=== PATIENT | male | born 1965 | race American Indian/Alaskan Native ===

== ENCOUNTER 2018-04-03 15:01 | Inpatient (IN) | payer SELFPAY ==
[2018-04-03] MEDS ORDERED: ASPIRIN PO ONE (15:20)
[2018-04-03 16:11] LABS: Basophils # (Auto) 0.1 K/mm3 (0.0-0.1); Basophils % (Auto) 0.9 % (0.0-1.8); Eosinophils # (Auto) 0.2 K/mm3 (0.0-0.4); Eosinophils % (Auto) 3.2 % (0.0-4.3); Hematocrit 44.8 % (35.5-45.6); Hemoglobin 14.5 gm/dl (11.8-15.2); Lymphocytes # (Auto) 1.6 K/mm3 (1.2-5.4); Lymphocytes % (Auto) 27.1 % (13.4-35.0); Mean Corpuscular HGB Conc 32 % (32-34); Mean Corpuscular Hemoglobin 28 pg (28-32); Mean Corpuscular Volume 85 fl (84-94); Monocytes # (Auto) 0.5 K/mm3 (0.0-0.8); Monocytes % (Auto) 8.6 % (0.0-7.3); Platelet Count 426 K/mm3 (140-440); Red Blood Count 5.25 M/mm3 (3.65-5.03); Red Cell Distribution Width 17.7 % (13.2-15.2)
--- NOTE | 2018-04-03 16:22 | Emergency Department Report ---
ED Shortness of Breath HPI - General Chief Complaint: High BP Stated Complaint: HIGH BP Time Seen by Provider: 04/03/18 16:08 Source: patient Mode of arrival: Ambulatory Limitations: No Limitations - History of Present Illness Initial Comments: 52-year-old male with history of hypertension presents to ED with complaint of feeling like blood pressure is elevated and also shortness of breath. Patient states her blood pressure was elevated due to feelings of dizziness and lightheadedness. Patient denies chest pain. Reports dyspnea on exertion. States feels like he has "water on his lungs." Patient states in the past he has had fluid on his lungs. Unsure if he's ever been diagnosed with congestive heart failure. Patient reports lower extremity edema. Denies leg pain. Denies headache. Patient states has been off medications for several years. Patient denies smoking, drinking, or drug use. PCP: none Complaint: shortness of breath -: Gradual (unable to state time frame) Severity: moderate Consistency: intermittent Improves With: rest Worsens With: exertion Context: occured during exertion Associated Symptoms: palpitations - Related Data Previous Rx's Medication Instructions Recorded Last Taken Type Furosemide [Lasix TAB] 40 mg PO QDAY #30 tablet 04/03/18 Unknown Rx Lisinopril [Prinivil] 10 mg PO DAILY #30 tablet 04/03/18 Unknown Rx Metoprolol [Lopressor TAB] 25 mg PO DAILY #30 tablet 04/03/18 Unknown Rx Potassium Chloride 10 meq PO QDAY #15 capsule.er 04/03/18 Unknown Rx Simvastatin [Zocor TAB] 10 mg PO QHS #30 tablet 04/03/18 Unknown Rx Allergies Allergy/AdvReac Type Severity Reaction Status Date / Time No Known Allergies Allergy Unverified 04/03/18 15:17 ED Review of Systems ROS: Stated complaint: HIGH BP Other details as noted in HPI Comment: All other systems reviewed and negative Constitutional: denies: chills, fever Respiratory: cough, shortness of breath, SOB with exertion Cardiovascular: palpitations, dyspnea on exertion. denies: chest pain Genitourinary: other (decreased urine output) Neurological: denies: headache ED Past Medical Hx - Past Medical History Hx Hypertension: Yes Additional medical history: gout - Social History Smoking Status: Former Smoker Substance Use Type: Alcohol - Medications Home Medications: Home Medications Medication Instructions Recorded Confirmed Last Taken Type Furosemide [Lasix TAB] 40 mg PO QDAY #30 tablet 04/03/18 Unknown Rx Lisinopril [Prinivil] 10 mg PO DAILY #30 tablet 04/03/18 Unknown Rx Metoprolol [Lopressor TAB] 25 mg PO DAILY #30 tablet 04/03/18 Unknown Rx Potassium Chloride 10 meq PO QDAY #15 capsule.er 04/03/18 Unknown Rx Simvastatin [Zocor TAB] 10 mg PO QHS #30 tablet 04/03/18 Unknown Rx ED Physical Exam - General Limitations: No Limitations General appearance: alert, in no apparent distress - Head Head exam: Present: atraumatic, normocephalic - Eye Eye exam: Present: normal appearance, EOMI - ENT ENT exam: Present: mucous membranes moist - Neck Neck exam: Present: normal inspection - Respiratory Respiratory exam: Present: other (decreased breath sounds at bilateral bases) - Cardiovascular Cardiovascular Exam: Present: regular rate, tachycardia - GI/Abdominal GI/Abdominal exam: Present: soft. Absent: distended, tenderness - Extremities Exam Extremities exam: Present: other (1+ pitting edema BLE). Absent: tenderness - Neurological Exam Neurological exam: Present: alert, oriented X3 - Psychiatric Psychiatric exam: Present: normal affect, normal mood - Skin Skin exam: Present: warm, intact, other (skin is dry) ED Course Vital Signs 04/03/18 04/03/18 04/03/18 15:17 15:48 16:00 Temperature 98.3 F Pulse Rate 55 L 109 H Respiratory 16 26 H Rate Blood Pressure 164/118 157/110 157/110 Blood Pressure [Right] O2 Sat by Pulse 97 Oximetry 04/03/18 04/03/18 04/03/18 16:06 17:00 18:00 Temperature Pulse Rate 118 H 104 H Respiratory 16 25 H Rate Blood Pressure 150/107 142/109 Blood Pressure 157/110 [Right] O2 Sat by Pulse 100 94 94 Oximetry ED Medical Decision Making - Lab Data Result diagrams: 04/03/18 15:54 04/03/18 15:54 - EKG Data EKG shows normal: sinus rhythm, axis (nml), intervals (nml), QRS complexes (nml) , ST-T waves (T wave inv inferolateral leads) Rate: tachycardia (rate 111) - EKG Data Interpretation: LVH, other (abnormal EKG) - Radiology Data Radiology results: image reviewed interpreted by me: Mild interstitial edema and cardiomegaly - Medical Decision Making 52-year-old male with possible past medical history of CHF presents with dyspnea on exertion and feeling like blood pressure is elevated. Patient is tachycardic with inferior lateral T-wave inversions on EKG. Troponin negative. BNP elevated. Chest x-ray shows enlarged heart with mild edema present. Patient with pitting edema on exam. Patient has no PCP and off all meds. Will admit hospitalist for cardiac workup. - Differential Diagnosis CHF, ARF, pneumonia, PE, HTN emergency Critical care time in (mins) excluding proc time.: 35 Critical care attestation.: If time is entered above; I have spent that time in minutes in the direct care of this critically ill patient, excluding procedure time. ED Disposition Clinical Impression: CHF (congestive heart failure), Pulmonary edema, Essential hypertension Disposition: OP ADMIT IP TO THIS HOSP Is pt being admited?: Yes Condition: Stable Instructions: Pulmonary Edema (ED), Hypertension (ED) Prescriptions: Simvastatin [Zocor TAB] 10 mg PO QHS #30 tablet Furosemide [Lasix TAB] 40 mg PO QDAY #30 tablet Lisinopril [Prinivil] 10 mg PO DAILY #30 tablet Metoprolol [Lopressor TAB] 25 mg PO DAILY #30 tablet Potassium Chloride 10 meq PO QDAY #15 capsule.er Referrals: PRIMARY CARE, [Primary Care Provider] - 3-5 Days Time of Disposition: 18:25
[2018-04-03 16:29] LABS: BUN/Creatinine Ratio 9; Blood Urea Nitrogen 11 mg/dL (9-20); Calcium 8.8 mg/dL (8.4-10.2); Hemolysis Index 12
[2018-04-03] MEDS ORDERED: LASIX IV ONE (17:59)
[2018-04-03] MEDS ORDERED: ZESTRIL PO ONE (18:38)
[2018-04-03] MEDS ORDERED: LOPRESSOR PO ONE (18:40)
--- NOTE | 2018-04-03 19:10 | XRay Report ---
FINAL REPORT EXAM: XR CHEST 1V AP HISTORY: sob TECHNIQUE: Single, portable chest x-ray. PRIORS: None. FINDINGS: Moderate cardiomegaly. Lungs are normally expanded, with increased interstitial markings centrally. No focal consolidation or apparent pneumothorax. Bony thorax grossly unremarkable. IMPRESSION: 1. Findings compatible with pulmonary venous hypertension. 2. No acute consolidation.
[2018-04-03 20:14] LABS: Chol/HDL Ratio 5.88 %
[2018-04-03] MEDS ORDERED: HCTZ PO ONE (20:41)
[2018-04-03] MEDS ORDERED: ZOFRAN IV PRN (20:52)
[2018-04-03] MEDS ORDERED: SODIUM CHLORIDE FLUSH SYRINGE 10 ML IV PRN (20:52)
[2018-04-03] MEDS ORDERED: PROVENTIL IH PRN (20:52)
[2018-04-03] MEDS ORDERED: TYLENOL PO PRN (20:52)
--- NOTE | 2018-04-03 21:04 | History and Physical Report ---
History of Present Illness Chief complaint: Its hard to breathe History of present illness: 52 YO Male with HTN, CHF, Noncompliant with antihypertensive therapy for past 18 months as well as cardiology follow up care, Obesity presents to ED for evaluation. Pt states that he has experienced shortness of breath, leg swelling , decreased exercise tolerance, Orthopnea/PND for the past several months, with worsening symptoms over the past 2 weeks. Pt states that he stopped taking his medication almost 18 months ago because it was not working and he did not want to waste money on medication. Pt denies fever, chills, CP, Palpitations, NVD, Trauma, productive cough, syncope, unilateral leg swelling, individual/family history of DVT/PE, or recent ill contacts. Pt seen and evaluated in ED and found to have CHF Decompensation, Acute Respiratory Failure, and Accelerated Hypertension with narrow pulse pressure. Pt admitted to telemetry, Cardiology consulted in ED. PT counseled regarding medication noncompliance without success. Past History Past Medical History: heart failure, hypertension Past Surgical History: No surgical history, Other (reviewed) Social history: single. denies: smoking, alcohol abuse, prescription drug abuse Family history: hypertension Medications and Allergies Allergies Allergy/AdvReac Type Severity Reaction Status Date / Time No Known Allergies Allergy Unverified 04/03/18 15:17 Home Medications Medication Instructions Recorded Confirmed Last Taken Type No Known Home Medications [No 04/04/18 04/04/18 Unknown History Reported Home Medications] Active Meds: Active Medications Acetaminophen (Tylenol) 650 mg PO Q4H PRN PRN Reason: Pain MILD(1-3)/Fever >100.5/KEVIN Albuterol (Proventil) 2.5 mg IH Q4HRT PRN PRN Reason: Shortness Of Breath Ondansetron HCl (Zofran) 4 mg IV Q8H PRN PRN Reason: Nausea And Vomiting Sodium Chloride (Sodium Chloride Flush Syringe 10 Ml) 10 ml IV BID TRACY Sodium Chloride (Sodium Chloride Flush Syringe 10 Ml) 10 ml IV PRN PRN PRN Reason: LINE FLUSH Review of Systems Constitutional: weight gain, no weight loss, no fever, no chills Ears, nose, mouth and throat: no ear pain, no ear discharge, no tinnitis, no decreased hearing, no nose pain, no nasal congestion Cardiovascular: orthopnea, shortness of breath, dyspnea on exertion, paroxysmal nocturnal dyspnea, high blood pressure, leg edema, decreased exercise tolerance , no chest pain, no rapid/irregular heart beat, no syncope Respiratory: no cough, no cough with sputum, no excessive sputum, no hemoptysis Gastrointestinal: no nausea, no vomiting, no diarrhea, no constipation, no change in bowel habits Genitourinary Male: no hematuria, no flank pain, no urinary hesitancy, no nocturia, no incontinence Rectal: no pain, no incontinence, no bleeding Musculoskeletal: no neck stiffness, no neck pain, no shooting arm pain, no arm numbness/tingling Integumentary: no rash, no pruritis, no redness, no sores, no wounds Neurological: no head injury, no transient paralysis, no paralysis, no weakness , no parathesias, no numbness Psychiatric: no anxiety, no change in sleep habits, no sleep disturbances, no insomnia, no hypersomnia Endocrine: no cold intolerance, no heat intolerance, no polyphagia, no excessive thirst, no polydipsia, no polyuria, no nocturia Hematologic/Lymphatic: no easy bruising, no easy bleeding, no lymphadenopathy, no lymphedema Allergic/Immunologic: no urticaria, no allergic rhinitis, no wheezing, no persistent infections, no anaphylaxis, no angioedema Exam - Constitutional Vitals: Temp Pulse Resp BP Pulse Ox 97.6 F 119 H 18 140/110 96 04/03/18 20:40 04/03/18 20:40 04/03/18 20:40 04/03/18 20:40 04/03/18 20:00 General appearance: Present: mild distress - EENT Eyes: Present: PERRL ENT: hearing intact, clear oral mucosa - Neck Neck: Present: supple, normal ROM - Respiratory Respiratory effort: normal Respiratory: bilateral: diminished, rhonchi - Cardiovascular Heart Sounds: Present: S1 & S2. Absent: rub, click - Extremities Extremities: pulses symmetrical, No edema Extremity abnormal: edema Peripheral Pulses: within normal limits - Abdominal General gastrointestinal: Present: soft, non-tender, non-distended, normal bowel sounds Male genitourinary: Present: normal - Integumentary Integumentary: Present: clear, warm, dry - Musculoskeletal Musculoskeletal: gait normal, strength equal bilaterally - Psychiatric Psychiatric: appropriate mood/affect, intact judgment & insight - Neurologic Neurologic: CNII-XII intact, moves all extremities Results - Labs CBC & Chem 7: 04/03/18 15:54 04/03/18 15:54 Labs: Abnormal lab results 04/03/18 04/03/18 04/03/18 Range/Units 15:54 15:54 15:54 RBC 5.25 H (3.65-5.03) M/mm3 RDW 17.7 H (13.2-15.2) % [place] % (Auto) 8.6 H (0.0-7.3) % D-Dimer (0-234) ng/mlDDU Carbon Dioxide 21 L (22-30) mmol/L Glucose 148 H (75-100) mg/dL NT-Pro-B Natriuret Pep 7410 H (0-900) pg/mL HDL Cholesterol (40-59) mg/dL 04/03/18 04/03/18 Range/Units 18:10 18:20 RBC (3.65-5.03) M/mm3 RDW (13.2-15.2) % [place] % (Auto) (0.0-7.3) % D-Dimer 478.41 H (0-234) ng/mlDDU Carbon Dioxide (22-30) mmol/L Glucose (75-100) mg/dL NT-Pro-B Natriuret Pep (0-900) pg/mL HDL Cholesterol 25 L (40-59) mg/dL Assessment and Plan - Patient Problems (1) CHF (congestive heart failure) Current Visit: Yes Status: Acute Qualifiers: Heart failure type: systolic Heart failure chronicity: acute on chronic Qualified Code(s): I50.23 - Acute on chronic systolic (congestive) heart failure Plan to address problem: ADmot to telemetry: Cardiology consulted, Strict I/o, daily weight, Echo, BNP, D dimer, chest x ray, supplemental oxygen, pulse oximetry, serial cardiac enzymes, (2) Acute respiratory failure Current Visit: Yes Status: Acute Qualifiers: Respiratory failure complication: hypoxia Qualified Code(s): J96.01 - Acute respiratory failure with hypoxia Plan to address problem: ADmit to telemetry, supplemental oxygen, diuresis, chest x ray, Ddimer, CTA chest, NIPPV as clinically indicated, (3) Accelerated hypertension Current Visit: Yes Status: Acute Plan to address problem: Monitor BP q shift, GIACOMO Inhibitior, B addis, HCTZ (4) DVT prophylaxis Current Visit: Yes Status: Acute Plan to address problem: SCD to BLE while in bed.
[2018-04-03] MEDS ORDERED: ZOFRAN IV ONE (21:15)
[2018-04-03] MEDS: LOPRESSOR PO SCH (22:09)
[2018-04-03] MEDS ORDERED: NACL 0.9% 1000 ML 1,000 ML ONE (22:09)
[2018-04-03] MEDS: SODIUM CHLORIDE FLUSH SYRINGE 10 ML IV SCH (22:09)
[2018-04-03 22:10] LABS: Free T4 (Free Thyroxine) 1.31 ng/dL (0.76-1.46)
[2018-04-03] MEDS ORDERED: NACL 0.9% 250ML 250 ML IV ONE (22:16)
--- NOTE | 2018-04-03 22:21 | Cat Scan Report ---
FINAL REPORT EXAM: CT ANGIO CHEST HISTORY: chest pain TECHNIQUE: Spiral CTA of the chest after the uneventful administration of IV contrast. Multiplanar reformations. 100 mL Omnipaque IV. PRIORS: None. FINDINGS: Chest: The main and bilateral proximal pulmonary arteries are normally opacified without endoluminal filling defects. Moderate-marked cardiomegaly. Thoracic aorta suboptimally opacified, without apparent aneurysm or pseudoaneurysm. Some prominent or mildly enlarged lymph nodes scattered in the mediastinum may be reactive, but nonspecific. No significant axillary adenopathy. Lungs show reticular and groundglass opacities scattered bilaterally. Very small right pleural effusion. No discrete parenchymal mass, focal consolidation or left pleural effusion. No apparent pneumothorax. Bilateral perinephric fat stranding partially visualized and nonspecific. Remainder of visualized upper abdomen grossly unremarkable. Degenerative change in the thoracic spine. IMPRESSION: 1. No evidence of large vessel or central pulmonary emboli. Cardiomegaly. 2. Findings which may represent microatelectasis or mild edema versus nonspecific postinflammatory change or pneumonitis of uncertain etiology or chronicity. Clinical correlation and followup suggested.
[2018-04-04] MEDS: LASIX IV SCH ×2 (06:00→17:34)
[2018-04-04] MEDS ORDERED: HCTZ PO SCH (10:00)
--- NOTE | 2018-04-04 10:40 | Progress Note ---
Subjective Date of service: 04/04/18 Interval history: CONSULT DICTATED Objective Vital Signs Temp Pulse Pulse Resp BP BP Pulse Ox 04/04/18 08:00 97.6 F 83 83 16 119/85 100 04/04/18 07:00 73 16 103/52 04/04/18 06:46 78 17 98 04/04/18 06:00 83 20 122/93 99 04/04/18 02:30 94 04/04/18 02:00 84 15 121/89 95 04/04/18 01:01 84 15 116/70 94 04/04/18 00:00 78 31 H 116/84 93 04/03/18 23:01 81 13 79/54 97 04/03/18 22:31 79 18 94/66 98 04/03/18 22:09 81 71/49 04/03/18 22:03 81 20 79/54 96 04/03/18 22:01 81 43 H 141/111 94 04/03/18 21:07 97 H 19 141/111 04/03/18 20:40 97.6 F 119 H 18 140/110 04/03/18 20:00 117 H 28 H 141/111 96 04/03/18 19:56 120 H 18 133/111 04/03/18 19:00 114 H 32 H 133/111 96 04/03/18 18:00 142/109 94 04/03/18 17:00 104 H 25 H 150/107 94 04/03/18 16:06 118 H 16 157/110 100 04/03/18 16:00 109 H 26 H 157/110 04/03/18 15:48 157/110 04/03/18 15:17 98.3 F 55 L 16 164/118 97 - Labs and Meds Lipids 04/03/18 Range/Units 18:20 Triglycerides 115 (2-149) mg/dL Cholesterol 147 (50-199) mg/dL HDL Cholesterol 25 L (40-59) mg/dL Cholesterol/HDL Ratio 5.88 % CBC 04/03/18 Range/Units 15:54 WBC 5.9 (4.5-11.0) K/mm3 RBC 5.25 H (3.65-5.03) M/mm3 Hgb 14.5 (11.8-15.2) gm/dl Hct 44.8 (35.5-45.6) % Plt Count 426 (140-440) K/mm3 Lymph # 1.6 (1.2-5.4) K/mm3 [place] # 0.5 (0.0-0.8) K/mm3 Eos # 0.2 (0.0-0.4) K/mm3 Baso # 0.1 (0.0-0.1) K/mm3 Comprehensive Metabolic Panel 04/03/18 Range/Units 15:54 Sodium 139 (137-145) mmol/L Potassium 3.6 (3.6-5.0) mmol/L Chloride 104.5 (98-107) mmol/L Carbon Dioxide 21 L (22-30) mmol/L BUN 11 (9-20) mg/dL Creatinine 1.2 (0.8-1.5) mg/dL Glucose 148 H (75-100) mg/dL Calcium 8.8 (8.4-10.2) mg/dL
[2018-04-04] MEDS: ZESTRIL PO SCH (11:45)
[2018-04-04] MEDS: LOPRESSOR PO SCH ×2 (11:46→22:23)
[2018-04-04] MEDS: SODIUM CHLORIDE FLUSH SYRINGE 10 ML IV SCH ×2 (11:46→22:22)
--- NOTE | 2018-04-04 14:45 | Progress Note ---
Assessment and Plan Assessment and plan: Hypertensive urgency. started on Lisinopril, Metoprolol Acute on chronic CHF. Lasix iv cardiology following Echo ordered Obesity. i discussed diet and exercise to lose weight. Full code status History Interval history: Shortness of breath Elevated BP Hospitalist Physical - Physical exam Narrative exam: GEN:Not in acute distress, lying in bed, obese HEENT: Normocephalic, atraumatic, Neck: supple, No JVD Lungs: Bilateral basal crackles Heart:S1 and S2 reg, no murmurs, rubs or gallop Abd:soft, tender lower abd, non distended, Normal bowel sounds Ext: Bilateral lower ext edema, no clubbing or cyanosis Neuro: Awake, alert, oriented X 3, Moves all extremities - Constitutional Vitals: Temp Pulse Resp BP Pulse Ox 97.6 F 96 H 18 117/86 98 04/04/18 08:00 04/04/18 12:41 04/04/18 11:00 04/04/18 11:00 04/04/18 12:41 General appearance: Present: mild distress Results - Labs CBC & Chem 7: 04/03/18 15:54 04/03/18 15:54 Labs: Laboratory Last Values WBC 5.9 K/mm3 (4.5-11.0) 04/03/18 15:54 RBC 5.25 M/mm3 (3.65-5.03) H 04/03/18 15:54 Hgb 14.5 gm/dl (11.8-15.2) 04/03/18 15:54 Hct 44.8 % (35.5-45.6) 04/03/18 15:54 MCV 85 fl (84-94) 04/03/18 15:54 MCH 28 pg (28-32) 04/03/18 15:54 MCHC 32 % (32-34) 04/03/18 15:54 RDW 17.7 % (13.2-15.2) H 04/03/18 15:54 Plt Count 426 K/mm3 (140-440) 04/03/18 15:54 Lymph % (Auto) 27.1 % (13.4-35.0) 04/03/18 15:54 Lane % (Auto) 8.6 % (0.0-7.3) H 04/03/18 15:54 Eos % (Auto) 3.2 % (0.0-4.3) 04/03/18 15:54 Baso % (Auto) 0.9 % (0.0-1.8) 04/03/18 15:54 Lymph # 1.6 K/mm3 (1.2-5.4) 04/03/18 15:54 Lane # 0.5 K/mm3 (0.0-0.8) 04/03/18 15:54 Eos # 0.2 K/mm3 (0.0-0.4) 04/03/18 15:54 Baso # 0.1 K/mm3 (0.0-0.1) 04/03/18 15:54 Seg Neutrophils % 60.2 % (40.0-70.0) 04/03/18 15:54 Seg Neutrophils # 3.6 K/mm3 (1.8-7.7) 04/03/18 15:54 D-Dimer 478.41 ng/mlDDU (0-234) H 04/03/18 18:10 Sodium 139 mmol/L (137-145) 04/03/18 15:54 Potassium 3.6 mmol/L (3.6-5.0) 04/03/18 15:54 Chloride 104.5 mmol/L (98-107) 04/03/18 15:54 Carbon Dioxide 21 mmol/L (22-30) L 04/03/18 15:54 Anion Gap 17 mmol/L 04/03/18 15:54 BUN 11 mg/dL (9-20) 04/03/18 15:54 Creatinine 1.2 mg/dL (0.8-1.5) 04/03/18 15:54 Estimated GFR > 60 ml/min 04/03/18 15:54 BUN/Creatinine Ratio 9 % 04/03/18 15:54 Glucose 148 mg/dL (75-100) H 04/03/18 15:54 Calcium 8.8 mg/dL (8.4-10.2) 04/03/18 15:54 Troponin T 0.012 ng/mL (0.00-0.029) 04/03/18 21:00 NT-Pro-B Natriuret Pep 7410 pg/mL (0-900) H 04/03/18 15:54 Triglycerides 115 mg/dL (2-149) 04/03/18 18:20 Cholesterol 147 mg/dL (50-199) 04/03/18 18:20 LDL Cholesterol Direct 114 mg/dL (50-130) 04/03/18 18:20 HDL Cholesterol 25 mg/dL (40-59) L 04/03/18 18:20 Cholesterol/HDL Ratio 5.88 % 04/03/18 18:20 TSH 1.670 mlU/mL (0.270-4.200) 04/03/18 21:00 Free T4 1.31 ng/dL (0.76-1.46) 04/03/18 21:00
--- NOTE | 2018-04-04 23:59 | Consultation ---
HISTORY OF PRESENT ILLNESS: The patient is a 52-year-old gentleman with a history of hypertension, who presented with shortness of breath, easy fatigability, dizziness, dyspnea on exertion, and ankle swelling. He states that he has had this issue before with fluid in his lungs. He has been having these types of problems for the past 3 years. There has been ankle edema, but no chest discomfort, stroke symptoms, headache, smoking, alcohol use or drug abuse. He has been off medicines for a few years. He does not see a doctor regularly. He works at the [employer]. He states that his heart was noted to be enlarged in the past. He does not see a doctor regularly. PAST MEDICAL HISTORY: None. ALLERGIES: NONE. SOCIAL HISTORY: Smoking: None. Alcohol: No heavy use. PAST SURGICAL HISTORY: So far, there are no surgeries described. REVIEW OF SYSTEMS: He has a history of gout. There is a remote history of smoking. Operations, none. There does not describe any significant skin disorders, disorders, psychiatric disorders, and arthritis. PHYSICAL EXAMINATION: GENERAL: A well-developed, well-nourished, slightly overweight, in no acute distress. Alert, oriented, and cooperative. Mental status normal. HEAD, EYES, EARS, NOSE, AND THROAT: Unremarkable. NECK: Reveals JVD. There are no bruits. Neck is supple, no masses. LUNGS: Bibasilar rales, no labored respirations. CARDIOVASCULAR: Regular rhythm, S4 gallop. Grade 1 systolic murmur. No S3, no rubs. ABDOMEN: Soft, nontender, no masses. EXTREMITIES: No cyanosis or clubbing. There is 1+ pedal edema. Peripheral pulses are intact. NEUROLOGICAL: Grossly symmetrical. SKIN: Clear. LABORATORY DATA: EKG, sinus tachycardia with probable LVH and repolarization abnormality. IMPRESSION: 1. Acute on chronic congestive heart failure, probably systolic, improving on therapy. 2. Uncontrolled hypertension: Improved on therapy. The patient has been noncompliant with medication for quite some time. 3. Blood sugar 148, possible new onset of diabetes. 4. Hyperlipidemia with a low HDL. PLAN: Discussed the importance of compliance, treat for congestive heart failure, and hypertension. Echocardiography, check previous workup. Thank you for this consultation. JOB# [id number] JDS/NTS
[2018-04-05 06:06] LABS: Calcium 9.1 mg/dL (8.4-10.2)
[2018-04-05] MEDS: LASIX IV SCH (06:46)
--- NOTE | 2018-04-05 10:29 | Progress Note ---
Assessment and Plan Acute systolic heart failure, uncertain duration EF <10% by echocardiogram quit ETOH 2 months ago Hypertension Noncompliant Continue medical therapy for his systolic heart failure as tolerated. Sodium/Fluid restriction. Daily weight. Subjective Date of service: 04/05/18 Interval history: Patient reports his breathing is improving. He denies chest pain. No reported events on telemetry monitoring. Objective Vital Signs Temp Pulse Resp BP BP Pulse Ox 04/05/18 07:51 97.5 F L 87 18 118/95 92 04/05/18 04:04 97.6 F 90 18 111/88 98 04/04/18 23:57 87 120/85 100 04/04/18 22:23 90 107/82 04/04/18 22:00 95 04/04/18 20:28 97.3 F L 91 H 20 107/82 93 04/04/18 17:46 98.1 F 81 18 99/75 100 04/04/18 12:41 96 H 98 04/04/18 12:39 97.3 F L 18 129/95 04/04/18 12:00 89 23 126/89 99 04/04/18 11:51 95 H 25 H 116/78 100 04/04/18 11:00 82 18 117/86 98 - Physical Examination General: No Apparent Distress HEENT: Positive: PERRL Cardiac: Positive: Reg Rate and Rhythm Lungs: Positive: Decreased Breath Sounds Neuro: Positive: Grossly Intact - Labs and Meds Comprehensive Metabolic Panel 04/05/18 Range/Units 04:47 Sodium 138 (137-145) mmol/L Potassium 4.8 D (3.6-5.0) mmol/L Chloride 98.1 (98-107) mmol/L Carbon Dioxide 25 (22-30) mmol/L BUN 22 H (9-20) mg/dL Creatinine 1.8 H (0.8-1.5) mg/dL Glucose 125 H (75-100) mg/dL Calcium 9.1 (8.4-10.2) mg/dL
[2018-04-05] MEDS: ZESTRIL PO SCH (11:06)
[2018-04-05] MEDS: SODIUM CHLORIDE FLUSH SYRINGE 10 ML IV SCH ×2 (11:07→22:45)
[2018-04-05] MEDS: LOPRESSOR PO SCH (11:07)
--- NOTE | 2018-04-05 19:28 | Progress Note ---
Assessment and Plan Assessment and plan: Hypertensive urgency. started on Lisinopril, Metoprolol Acute on chronic CHF. Lasix iv cardiology following Echo ordered Acute kidney injury. Cr 1.8. decrease Lasix to once daily. Monitor BMP Obesity. I discussed diet and exercise to lose weight. Full code status History Interval history: Feels better, less shortness of breath Elevated BP Hospitalist Physical - Physical exam Narrative exam: GEN:Not in acute distress, lying in bed, obese HEENT: Normocephalic, atraumatic, Neck: supple, No JVD Lungs: Bilateral basal crackles Heart:S1 and S2 reg, no murmurs, rubs or gallop Abd:soft, tender lower abd, non distended, Normal bowel sounds Ext: Bilateral lower ext edema, no clubbing or cyanosis Neuro: Awake, alert, oriented X 3, Moves all extremities - Constitutional Vitals: Temp Pulse Resp BP Pulse Ox 97.8 F 85 20 121/89 99 04/05/18 17:29 04/05/18 17:29 04/05/18 17:29 04/05/18 17:29 04/05/18 17:29 Results - Labs CBC & Chem 7: 04/03/18 15:54 04/05/18 04:47 Labs: Laboratory Last Values WBC 5.9 K/mm3 (4.5-11.0) 04/03/18 15:54 RBC 5.25 M/mm3 (3.65-5.03) H 04/03/18 15:54 Hgb 14.5 gm/dl (11.8-15.2) 04/03/18 15:54 Hct 44.8 % (35.5-45.6) 04/03/18 15:54 MCV 85 fl (84-94) 04/03/18 15:54 MCH 28 pg (28-32) 04/03/18 15:54 MCHC 32 % (32-34) 04/03/18 15:54 RDW 17.7 % (13.2-15.2) H 04/03/18 15:54 Plt Count 426 K/mm3 (140-440) 04/03/18 15:54 Lymph % (Auto) 27.1 % (13.4-35.0) 04/03/18 15:54 Lewis % (Auto) 8.6 % (0.0-7.3) H 04/03/18 15:54 Eos % (Auto) 3.2 % (0.0-4.3) 04/03/18 15:54 Baso % (Auto) 0.9 % (0.0-1.8) 04/03/18 15:54 Lymph # 1.6 K/mm3 (1.2-5.4) 04/03/18 15:54 Lewis # 0.5 K/mm3 (0.0-0.8) 04/03/18 15:54 Eos # 0.2 K/mm3 (0.0-0.4) 04/03/18 15:54 Baso # 0.1 K/mm3 (0.0-0.1) 04/03/18 15:54 Seg Neutrophils % 60.2 % (40.0-70.0) 04/03/18 15:54 Seg Neutrophils # 3.6 K/mm3 (1.8-7.7) 04/03/18 15:54 D-Dimer 478.41 ng/mlDDU (0-234) H 04/03/18 18:10 Sodium 138 mmol/L (137-145) 04/05/18 04:47 Potassium 4.8 mmol/L (3.6-5.0) D 04/05/18 04:47 Chloride 98.1 mmol/L (98-107) 04/05/18 04:47 Carbon Dioxide 25 mmol/L (22-30) 04/05/18 04:47 Anion Gap 20 mmol/L 04/05/18 04:47 BUN 22 mg/dL (9-20) H 04/05/18 04:47 Creatinine 1.8 mg/dL (0.8-1.5) H 04/05/18 04:47 Estimated GFR 49 ml/min 04/05/18 04:47 BUN/Creatinine Ratio 12 % 04/05/18 04:47 Glucose 125 mg/dL (75-100) H 04/05/18 04:47 Calcium 9.1 mg/dL (8.4-10.2) 04/05/18 04:47 Troponin T 0.012 ng/mL (0.00-0.029) 04/03/18 21:00 NT-Pro-B Natriuret Pep 7410 pg/mL (0-900) H 04/03/18 15:54 Triglycerides 115 mg/dL (2-149) 04/03/18 18:20 Cholesterol 147 mg/dL (50-199) 04/03/18 18:20 LDL Cholesterol Direct 114 mg/dL (50-130) 04/03/18 18:20 HDL Cholesterol 25 mg/dL (40-59) L 04/03/18 18:20 Cholesterol/HDL Ratio 5.88 % 04/03/18 18:20 TSH 1.670 mlU/mL (0.270-4.200) 04/03/18 21:00 Free T4 1.31 ng/dL (0.76-1.46) 04/03/18 21:00
[2018-04-05 20:55] LABS: Calcium 8.9 mg/dL (8.4-10.2)
[2018-04-05] MEDS: COREG PO SCH (22:45)
[2018-04-06] MEDS ORDERED: LASIX IV SCH (06:00)
[2018-04-06 06:09] LABS: Calcium 8.5 mg/dL (8.4-10.2)
[2018-04-06] MEDS ORDERED: LEXISCAN IV ONE ×2 (08:10→08:18)
[2018-04-06] MEDS: SODIUM CHLORIDE FLUSH SYRINGE 10 ML IV SCH (11:44)
[2018-04-06] MEDS: COREG PO SCH (11:44)
--- NOTE | 2018-04-06 12:19 | Discharge Summary ---
Providers - Providers Date of Admission: 04/03/18 20:52 Date of discharge: 04/06/18 Attending physician: MARIEL MEJIA 04/03/18 21:02 Consult to Cardiology [CONS] Routine Consulting Provider: CARLOS BRIGGS Reason For Exam: chf Primary care physician: LENDING ADVISOR Hospitalization Condition: Fair Disposition: DC-01 TO HOME OR SELFCARE Core Measure Documentation - Palliative Care Palliative Care/ Comfort Measures: Not Applicable - Core Measures Any of the following diagnoses?: heart failure - Heart Failure Discharge Requirements GIACOMO/ARB for LVSD if EF <40%: Yes Beta addis at discharge: Yes Exam - Constitutional Vitals: Temp Pulse Resp BP Pulse Ox 99.8 F H 94 H 18 135/96 100 04/06/18 12:13 04/06/18 12:13 04/06/18 12:13 04/06/18 12:13 04/06/18 12:13 Plan Activity: advance as tolerated Diet: low fat, low cholesterol, low salt Additional Instructions: 1.Follow up with PCP or [facility] in 1 week. 2.Follow up with Dr. Oziel Kaiser, cardiology in 1 week. 3.Check BMP in 1 week to be followed by PCP or Cardiology Follow up with: PRIMARY CARE, [Primary Care Provider] - 3-5 Days Prescriptions: Aspirin EC [Aspirin Enteric Coated TAB] 81 mg PO QDAY #30 tablet. Carvedilol [Coreg] 6.25 mg PO BID #60 tablet Furosemide [Lasix] 20 mg PO QDAY #30 tablet Spironolactone [Aldactone] 12.5 mg PO QDAY #30 tablet
--- NOTE | 2018-04-06 12:20 | Progress Note ---
Assessment and Plan 1. Chronic combined systolic and diastolic heart failure 2. Dilated cardiomyopathy left ventricular ejection fraction 10% 3. Essential hypertension 4. Alcohol abuse Plan. Patient's stable on present cardiac medication stress Lexiscan MPI done today showed a dilated nonischemic cardiomyopathy with left ventricular ejection fraction of 15% Okay to discharge home to follow up in the office. Subjective Date of service: 04/06/18 Interval history: No cardiac symptoms Objective Vital Signs Temp Pulse Resp BP BP Pulse Ox 04/06/18 12:13 99.8 F H 94 H 18 135/96 100 04/06/18 09:35 87 125/92 04/06/18 09:34 90 123/92 04/06/18 09:19 90 138/102 04/06/18 07:30 86 04/06/18 07:28 98.0 F 18 132/100 100 04/06/18 05:14 98.9 F 82 18 97/68 99 04/06/18 05:00 82 04/06/18 04:50 89 97/62 96 04/06/18 00:26 98.6 F 89 18 109/80 100 04/05/18 22:45 92 H 131/92 04/05/18 21:15 22 96 04/05/18 21:00 89 04/05/18 20:14 98.9 F 89 18 119/90 96 04/05/18 19:48 89 119/90 88 04/05/18 17:29 97.8 F 85 20 121/89 99 04/05/18 13:00 85 - Physical Examination General: No Apparent Distress HEENT: Positive: PERRL Neck: Positive: neck supple, trachea midline Cardiac: Positive: Regular Rate, S1/S2, S3, PMI, Dilated, Laterally Displaced Lungs: Positive: clear to auscultation, No Wheeze, Rales, Rhonchi Neuro: Positive: Grossly Intact Abdomen: Positive: Unremarkable, Active Bowel Sounds Extremities: Absent: edema - Labs and Meds Comprehensive Metabolic Panel 04/05/18 04/06/18 Range/Units 20:01 03:38 Sodium 140 138 (137-145) mmol/L Potassium 4.7 4.4 (3.6-5.0) mmol/L Chloride 99.4 100.1 (98-107) mmol/L Carbon Dioxide 26 20 L (22-30) mmol/L BUN 25 H 26 H (9-20) mg/dL Creatinine 1.8 H 1.5 (0.8-1.5) mg/dL Glucose 145 H 127 H (75-100) mg/dL Calcium 8.9 8.5 (8.4-10.2) mg/dL - Telemetry EKG Rhythm: Sinus Rhythm
[2018-04-06 16:25] VITALS: BP 135/87
== END 2018-04-06 18:29 | disposition home or self-care (01) | DRG 291 ==
LOC: ED 15:01 → 4A 20:52
PROVIDERS: ADMIT Internal Medicine; ATTEND Internal Medicine
DX: I11.0 Hypertensive heart disease with heart failure (principal); J96.01 Acute respiratory failure with hypoxia; J81.1 Chronic pulmonary edema; N17.9 Acute kidney failure, unspecified; I50.43 Acute on chronic combined systolic (congestive) and diastolic (congestive) heart failure; I42.0 Dilated cardiomyopathy; F10.10 Alcohol abuse, uncomplicated; I16.0 Hypertensive urgency; R79.89 Other specified abnormal findings of blood chemistry; M10.9 Gout, unspecified; E78.5 Hyperlipidemia, unspecified; E66.9 Obesity, unspecified; Z68.35 Body mass index [BMI] 35.0-35.9, adult; Z91.14 Patient's other noncompliance with medication regimen; Z82.49 Family history of ischemic heart disease and other diseases of the circulatory system; Z72.89 Other problems related to lifestyle; Z79.899 Other long term (current) drug therapy
CPT/HCPCS: 36415; 71045; 71275; 78452; 80048; 80061; 83880; 84439; 84443; 84484; 85025; 85379; 93005; 93010; 93017; 93306; A9502; J1940; J2405; J2785; J7030; Q9967

== ENCOUNTER 2018-04-10 11:24 | Emergency (ER) | payer SELFPAY ==
--- NOTE | 2018-04-10 12:18 | Emergency Department Report ---
ED Lower Extremity HPI - General Chief Complaint: Extremity Injury, Lower Stated Complaint: GOUT PAIN Time Seen by Provider: 04/10/18 12:00 Source: patient Mode of arrival: Ambulatory Limitations: No Limitations - History of Present Illness Initial Comments: This is a 52-year-old -[place] male who presents with bilateral lower extremity swelling and pain for 2 days. Past medical history of congestive heart failure, hypertension, and gout. Patient states he was recently discharged 2-3 days ago and started on spironolactone and Lasix for congestive heart failure. Patient states he was informed he may potentially have a gout flare from medication. He is now complaining of swelling and pain to bilateral lower extremity from ankle to feet. Patient states he can't walk secondary pain. Patient denies recent injury, numbness or tingling, fever, deformity, or erythema. MD Complaint: ankle injury (bilateral), foot injury (bilateral) Onset/Timin -: days(s) Injury: Ankle: Right, Left, Foot: Right, Left Type of Injury: unknown Place: home Severity: severe Severity scale (0 -10): 10 Improves With: nothing Worsens With: weight bearing, movement, palpation Context: other (New Medication) Associated Symptoms: swelling, unable to bear weight. denies: snap/pop sensation, numbness, tingling Treatments Prior to Arrival: NSAIDS - Related Data Previous Rx's Medication Instructions Recorded Last Taken Type Aspirin EC [Aspirin Enteric Coated 81 mg PO QDAY #30 tablet. 04/06/18 Unknown Rx TAB] Carvedilol [Coreg] 6.25 mg PO BID #60 tablet 04/06/18 Unknown Rx Furosemide [Lasix] 20 mg PO QDAY #30 tablet 04/06/18 Unknown Rx Spironolactone [Aldactone] 12.5 mg PO QDAY #30 tablet 04/06/18 Unknown Rx Indomethacin 50 mg PO Q8H PRN #12 capsule 04/10/18 Unknown Rx Prednisone [predniSONE 10 mg 10 mg PO .TAPER #1 tab.ds.pk 04/10/18 Unknown Rx (6-Day Pack, 21 Tabs)] Allergies Allergy/AdvReac Type Severity Reaction Status Date / Time No Known Allergies Allergy Unverified 04/03/18 15:17 ED Review of Systems ROS: Stated complaint: GOUT PAIN Other details as noted in HPI Constitutional: denies: chills, fever Respiratory: denies: cough, shortness of breath, wheezing Cardiovascular: denies: chest pain, palpitations Gastrointestinal: denies: abdominal pain, nausea, diarrhea Musculoskeletal: joint swelling (bilateral ankle and feet), arthralgia ( bilateral ankles and feet). denies: back pain Skin: denies: rash, lesions Neurological: denies: headache, weakness, paresthesias Psychiatric: denies: anxiety, depression ED Past Medical Hx - Past Medical History Hx Hypertension: Yes Hx Congestive Heart Failure: Yes Hx Diabetes: No Hx COPD: No Additional medical history: gout - Social History Smoking Status: Former Smoker - Medications Home Medications: Home Medications Medication Instructions Recorded Confirmed Last Taken Type Aspirin EC [Aspirin Enteric Coated 81 mg PO QDAY #30 tablet.dr 04/06/18 Unknown Rx TAB] Carvedilol [Coreg] 6.25 mg PO BID #60 tablet 04/06/18 Unknown Rx Furosemide [Lasix] 20 mg PO QDAY #30 tablet 04/06/18 Unknown Rx Spironolactone [Aldactone] 12.5 mg PO QDAY #30 tablet 04/06/18 Unknown Rx Indomethacin 50 mg PO Q8H PRN #12 capsule 04/10/18 Unknown Rx Prednisone [predniSONE 10 mg 10 mg PO .TAPER #1 tab.ds.pk 04/10/18 Unknown Rx (6-Day Pack, 21 Tabs)] ED Physical Exam - General Limitations: No Limitations General appearance: alert, in no apparent distress, obese - Respiratory Respiratory exam: Present: normal lung sounds bilaterally. Absent: respiratory distress - Cardiovascular Cardiovascular Exam: Present: regular rate, normal rhythm. Absent: systolic murmur, diastolic murmur, rubs, gallop - GI/Abdominal GI/Abdominal exam: Present: soft, normal bowel sounds - Extremities Exam Extremities exam: Present: normal capillary refill, joint swelling. Absent: full ROM (Limited range of motion secondary pain), calf tenderness - Expanded Lower Extremity Exam Right Hip exam: Present: normal inspection, full ROM Upper Leg exam: Present: normal inspection, full ROM Knee exam: Present: normal inspection, full ROM Lower Leg exam: Present: normal inspection, full ROM Ankle exam: Present: tenderness, swelling, crepidus. Absent: full ROM (Limited range of motion secondary pain), abrasion, laceration, ecchymosis, deformity, dislocation, erythema, anterior draw sign Foot/Toe exam: Present: tenderness, swelling. Absent: full ROM (limited secondary to swelling and pain), abrasion, laceration, ecchymosis, deformity, crepidus, dislocation, erythema, amputation, puncture wound, foreign body, calcaneal tenderness, tenderness at base of 5th metatarsal, nail avulsion, subungual hematoma Neuro vascular tendon exam: Present: no vascular compromise Gait: Positive: unable to bear weight Left Hip exam: Present: normal inspection, full ROM Upper Leg exam: Present: normal inspection, full ROM Knee exam: Present: normal inspection, full ROM Lower Leg exam: Present: normal inspection, full ROM Ankle exam: Present: tenderness, swelling, crepidus. Absent: full ROM (limited secondary swelling and pain), abrasion, laceration, ecchymosis, deformity, dislocation, erythema, anterior draw sign Foot/Toe exam: Present: tenderness, swelling, calcaneal tenderness. Absent: full ROM (Limited range of motion secondary to swelling and pain), abrasion, laceration, ecchymosis, deformity, crepidus, dislocation, erythema, amputation, puncture wound, foreign body, tenderness at base of 5th metatarsal, nail avulsion, subungual hematoma - Neurological Exam Neurological exam: Present: alert, oriented X3 - Psychiatric Psychiatric exam: Present: normal affect, normal mood ED Course Vital Signs 04/10/18 04/10/18 04/10/18 11:38 11:50 14:16 Temperature 98.2 F Pulse Rate 107 H Respiratory 18 16 18 Rate Blood Pressure 169/127 Blood Pressure [Right] O2 Sat by Pulse 100 Oximetry 04/10/18 14:18 Temperature 97.9 F Pulse Rate 89 Respiratory 18 Rate Blood Pressure Blood Pressure 169/108 [Right] O2 Sat by Pulse 98 Oximetry ED Lower Extremity MDM - Lab Data Result diagrams: 04/10/18 12:55 04/10/18 12:55 - Radiology Data Radiology results: report reviewed, image reviewed BILATERAL ANKLES, 2 VIEWS BILATERAL FEET, 2 VIEWS History: Pain and swelling. Findings: There is nonspecific soft tissue swelling or pedal edema bilaterally. The bony structures are intact. No evidence for fracture, bone lesion or bony destruction. Mild degenerative changes are noted at the ankles and mid feet. Small bilateral plantar spurs are identified. Impression: Nonspecific soft tissue swelling. Degenerative changes. Plantar spurs. No acute process is noted. BILATERAL ANKLES, 2 VIEWS BILATERAL FEET, 2 VIEWS History: Pain and swelling. Findings: There is nonspecific soft tissue swelling or pedal edema bilaterally. The bony structures are intact. No evidence for fracture, bone lesion or bony destruction. Mild degenerative changes are noted at the ankles and mid feet. Small bilateral plantar spurs are identified. Impression: Nonspecific soft tissue swelling. Degenerative changes. Plantar spurs. No acute process is noted. - Medical Decision Making This is a 52 y.o. male that presents with swelling and pain to bilateral lower extremity for 3 days. Patient is stable and examined by me in the emergency room. Labs and x-rays of bilateral ankle and feet. No acute signs of distress noted. Given dexamethasone and [place] one in ER for gout. Discussed plan to start prednisone taper and indomethacin 50 mg po tid with patient. Educated patient on low purine diet and given handout. Patient agrees to ED plan of care. Discharged home and follow up with PCP in 3 days. Critical care attestation.: If time is entered above; I have spent that time in minutes in the direct care of this critically ill patient, excluding procedure time. ED Disposition Clinical Impression: Bilateral swelling of feet Gout attack Qualifiers: Gout site: multiple sites Gout etiology: drug-induced Qualified Code(s): M10.29 - Drug-induced gout, multiple sites Bilateral ankle pain Qualifiers: Chronicity: acute Qualified Code(s): M25.571 - Pain in right ankle and joints of right foot Disposition: DC-01 TO HOME OR SELFCARE Is pt being admited?: No Does the pt Need Aspirin: No Condition: Stable Instructions: Low Purine Diet (ED), Acute Gouty Arthritis (ED) Additional Instructions: Avoid foods that have a high purine content such as alcohol, organ meats, and seafood can cause higher risk of elevated uric acid and gout. Reduce intake of alcohol, especially beer, lowers the risk of gout. Reduce the intake of vegetables high in purines such as asparagus, spinach, and mushrooms. Dairy products reduce the risk of gout. Follow up with primary care provider in 2-3 days. Prescriptions: Indomethacin 50 mg PO Q8H PRN #12 capsule PRN Reason: Pain, Moderate (4-6) Prednisone [predniSONE 10 mg (6-Day Pack, 21 Tabs)] 10 mg PO .TAPER #1 tab.ds.pk Referrals: [facility] [Outside] - 3-5 Days [facility] [Outside] - 3-5 Days [facility] [Outside] - 3-5 Days Time of Disposition: 14:01 Print Language: DANISH
[2018-04-10 13:08] LABS: Basophils % (Auto) 0.6 % (0.0-1.8); Eosinophils # (Auto) 0.2 K/mm3 (0.0-0.4); Eosinophils % (Auto) 2.8 % (0.0-4.3); Hematocrit 43.5 % (35.5-45.6); Hemoglobin 14.2 gm/dl (11.8-15.2); Lymphocytes # (Auto) 1.4 K/mm3 (1.2-5.4); Lymphocytes % (Auto) 23.3 % (13.4-35.0); Mean Corpuscular HGB Conc 33 % (32-34); Mean Corpuscular Hemoglobin 28 pg (28-32); Mean Corpuscular Volume 85 fl (84-94); Monocytes # (Auto) 0.7 K/mm3 (0.0-0.8); Monocytes % (Auto) 12.1 % (0.0-7.3); Platelet Count 418 K/mm3 (140-440); Red Blood Count 5.14 M/mm3 (3.65-5.03); Red Cell Distribution Width 17.2 % (13.2-15.2)
--- NOTE | 2018-04-10 13:20 | XRay Report ---
BILATERAL ANKLES, 2 VIEWS BILATERAL FEET, 2 VIEWS History: Pain and swelling. Findings: There is nonspecific soft tissue swelling or pedal edema bilaterally. The bony structures are intact. No evidence for fracture, bone lesion or bony destruction. Mild degenerative changes are noted at the ankles and mid feet. Small bilateral plantar spurs are identified. Impression: Nonspecific soft tissue swelling. Degenerative changes. Plantar spurs. No acute process is noted.
[2018-04-10 13:28] LABS: BUN/Creatinine Ratio 12; Blood Urea Nitrogen 15 mg/dL (9-20); Calcium 9.1 mg/dL (8.4-10.2); Hemolysis Index 7; Uric Acid 11.7 mg/dL (3.5-7.6)
[2018-04-10] MEDS ORDERED: NORCO 5/325 PO ONE (13:49)
[2018-04-10] MEDS ORDERED: DECADRON IM ONE (13:49)
[2018-04-10 14:18] VITALS: BP 169/108
== END 2018-04-10 14:36 | disposition home or self-care (01) ==
LOC: ED 11:24
DX: M10.29 Drug-induced gout, multiple sites (principal); I11.0 Hypertensive heart disease with heart failure; I50.9 Heart failure, unspecified; Z87.891 Personal history of nicotine dependence
CPT/HCPCS: 36415; 73600; 73620; 80048; 84550; 85025; 96372; 99283; J1100